=== PATIENT | female | born 1995 | race Caucasian/White ===

== ENCOUNTER 2023-07-17 08:15 | Emergency (ER) | payer OTHER ==
[~2023-07-17] VITALS: Ht 165.1 cm; Wt 56.0 kg
[~2023-07-17 08:15] MED LIST: AMOX/K CLAV875 M1 PO; LEVOCETIRIZINE D5 MG PO; MEDDOSEPAK PO; NAPROXEN500 MG PO
[2023-07-17] MEDS ORDERED: AMOX/K CLAV875 M1 PO (09:45)
[2023-07-17] MEDS ORDERED: VENTOLIN HFA108 MCG PO (09:45)
[2023-07-17 10:10] VITALS: BP 116/69
== END 2023-07-17 10:19 | disposition home or self-care (01) ==
LOC: ED 08:15
DX: J32.0 Chronic maxillary sinusitis (principal); J45.909 Unspecified asthma, uncomplicated; Z20.822 Contact with and (suspected) exposure to COVID-19

== ENCOUNTER 2023-08-04 05:30 | Emergency (ER) | payer OTHER ==
[~2023-08-04] VITALS: Ht 165.1 cm; Wt 60.0 kg
[~2023-08-04 05:30] MED LIST changes: +VENTOLIN HFA108 MCG PO
[2023-08-04 05:40] VITALS: BP 113/77
[2023-08-04 06:00] VITALS: BP 109/74
[2023-08-04 07:00] VITALS: BP 117/74
[2023-08-04] MEDS ORDERED: IBUPROFEN 800 MG/TAB PO ONE (07:05)
[2023-08-04 08:19] VITALS: BP 117/74
== END 2023-08-04 08:19 | disposition home or self-care (01) ==
LOC: ED 05:30
DX: B34.9 Viral infection, unspecified (principal); J45.909 Unspecified asthma, uncomplicated; Z20.822 Contact with and (suspected) exposure to COVID-19

== ENCOUNTER 2023-12-31 10:35 | Emergency (ER) | payer OTHER ==
[~2023-12-31] VITALS: Ht 165.1 cm; Wt 59.0 kg
[~2023-12-31 10:35] MED LIST changes: +ARNUITY EL50 MCG/ACT PO; +MOTRIN800 MG PO; +PREDNISONE50 MG PO; +ZPAK PO
[2023-12-31 10:43] VITALS: BP 117/66
[2023-12-31 10:45] VITALS: BP 108/66
[2023-12-31 11:00] VITALS: BP 112/82
[2023-12-31] MEDS ORDERED: AMOX/K CLAV875 M1 PO (11:09)
[2023-12-31 11:15] VITALS: BP 120/73
[2023-12-31 11:17] VITALS: BP 112/82
== END 2023-12-31 11:20 | disposition home or self-care (01) ==
LOC: ED 10:35
DX: J32.0 Chronic maxillary sinusitis (principal); J45.909 Unspecified asthma, uncomplicated; Z20.822 Contact with and (suspected) exposure to COVID-19

== ENCOUNTER 2024-01-12 09:34 | Emergency (ER) | payer OTHER ==
[~2024-01-12] VITALS: Ht 165.1 cm; Wt 59.0 kg
[2024-01-12] VITALS (7 sets, daily range): BP systolic 96–118; BP diastolic 66–87
[2024-01-12] MEDS ORDERED: CLARITIN-D1 TAB PO (10:59)
[2024-01-12] MEDS ORDERED: NASACORT A55 MCG/ACT NAB (10:59)
== END 2024-01-12 10:58 | disposition home or self-care (01) ==
LOC: ED 09:34
DX: J32.9 Chronic sinusitis, unspecified (principal); J45.909 Unspecified asthma, uncomplicated